=== PATIENT | female | born 1960 | race African-American/Black ===

== ENCOUNTER 2020-04-24 09:18 | Emergency (ER) | payer MEDICAID ==
[~2020-04-24] VITALS: Ht 152.4 cm; Wt 117.0 kg
[2020-04-24 10:33] LABS: BASOPHILS % 0.8 % (0.0-2.0); EOSINOPHILS % 0.4 % (0.0-5.0); HEMATOCRIT. 40.6 % (36.0-48.0); HEMOGLOBIN. 13.3 g/dL (12.0-16.0); LYMPHOCYTES % 27.4 % (20.0-50.0); MEAN CORPUSCULAR HEMOGLOBIN 27.9 pg (28.0-32.0); MEAN CORPUSCULAR VOLUME 85.4 fL (81.0-99.0); MEAN PLATELET VOLUME 8.7 fl (7.4-10.4); MONOCYTES % 5.2 % (2.0-8.0); NEUTROPHILS % 66.2 % (40.0-76.0); PLATELET 229 x1000/uL (130-400); RED BLOOD CELL COUNT 4.76 mill/uL (4.2-5.4); RED CELL DISTRIBUTION WIDTH 14.8 % (11.6-14.6)
[2020-04-24 10:37] LABS: CHLORIDE 111 mEq/L (98-107)
[2020-04-24 10:42] LABS: INR 0.9
[2020-04-24 11:45] LABS: CLARITY URINE CLOUDY (CLEAR); COLOR URINE ORANGE (YELLOW); KETONES URINE NEGATIVE (NEGATIVE); LEUKOCYTE ESTERASE URINE NEGATIVE (NEGATIVE); NITRITE URINE NEGATIVE (NEGATIVE); OCCULT BLOOD URINE 3+ (NEGATIVE); PROTEIN URINE 1+ (NEGATIVE); SPECIFIC GRAVITY URINE 1.025 (1.005-1.030); UROBILINOGEN URINE 0.2 E.U./dL (0.2-1.0)
[2020-04-24 12:33] VITALS: BP 150/78
== END 2020-04-24 12:34 | disposition home or self-care (01) ==
LOC: ER 09:18
DX: N93.8 Other specified abnormal uterine and vaginal bleeding (principal); R05 Cough
CPT/HCPCS: 36415; 71045; 80053; 81003; 85025; 99284

== ENCOUNTER 2020-12-03 13:46 | Emergency (ER) | payer MEDICAID, OTHER ==
[~2020-12-03] VITALS: Ht 157.5 cm; Wt 102.0 kg
[2020-12-03] MEDS ORDERED: ALBU6.7H9 INH (16:04)
[2020-12-03 16:11] VITALS: BP 88/100
== END 2020-12-03 16:18 | disposition home or self-care (01) ==
LOC: ER 15:16
DX: J44.9 Chronic obstructive pulmonary disease, unspecified (principal); F17.200 Nicotine dependence, unspecified, uncomplicated
CPT/HCPCS: 71045; 99283

== ENCOUNTER 2025-06-06 09:39 | Emergency (ER) | payer MEDICARE, MEDICAID ==
[~2025-06-06] VITALS: Ht 152.4 cm; Wt 111.0 kg
[~2025-06-06 09:39] MED LIST: ALBU6.7H3 INH
[2025-06-06 09:42] VITALS: O2SAT 100
[2025-06-06 10:20] LABS: BASOPHILS % 0.9 % (0.0-2.0); EOSINOPHILS % 0.7 % (0.0-5.0); HEMATOCRIT. 36.2 % (36.0-48.0); HEMOGLOBIN. 11.6 g/dL (12.0-16.0); LYMPHOCYTES % 16.7 % (20.0-50.0); MEAN PLATELET VOLUME 7.8 fl (7.4-10.4); MONOCYTES % 5.3 % (2.0-8.0); NEUTROPHILS % 76.4 % (40.0-76.0); PLATELET 373 x1000/uL (130-400); RED BLOOD CELL COUNT 4.47 mill/uL (4.2-5.4); RED CELL DISTRIBUTION WIDTH 14.8 % (11.6-14.6)
[2025-06-06 10:36] LABS: CREATININE 0.8 mg/dL (0.6-1.0); UREA NITROGEN BLOOD 8 mg/dL (9-23)
[2025-06-06 10:59] LABS: B-HCG QUANTITATIVE 2 mIU/mL (<6)
[2025-06-06 11:37] LABS: HCG SCREEN NEGATIVE
[2025-06-06] MEDS: KETOROLAC 15MG/ML VIAL IV NR (11:45)
[2025-06-06] MEDS ORDERED: IBUP-2030 PO (12:58)
[2025-06-06] MEDS ORDERED: HYDR-4001 PO (12:58)
[2025-06-06 13:36] VITALS: BP 124/76; PULSE 83; RESP 20; TEMP 36.7; O2SAT 100
== END 2025-06-06 13:25 | disposition home or self-care (01) ==
LOC: ER 09:39
DX: D25.9 Leiomyoma of uterus, unspecified (principal); E66.01 Morbid (severe) obesity due to excess calories; R10.2 Pelvic and perineal pain; Z90.710 Acquired absence of both cervix and uterus
CPT/HCPCS: 99285; 96374; 76830; 76856; 80048; 84703; 84702; 85025; 86850; 86900; 86901; 36415; J1885